=== PATIENT | male | born 1990 | race Two or more races ===

== ENCOUNTER 2025-07-08 13:59 | Emergency (ER) | payer OTHER | END 2025-07-08 15:26 | LOC: FB.ED 13:59 | DX: S09.90XA Unspecified injury of head, initial encounter (principal); S16.1XXA Strain of muscle, fascia and tendon at neck level, initial encounter; S43.402A Unspecified sprain of left shoulder joint, initial encounter; V89.2XXA Person injured in unspecified motor-vehicle accident, traffic, initial encounter | CPT/HCPCS: 70450; 72125; 73030; 99284; A9270; 99283 ==